=== PATIENT | female | born 2000 | race Caucasian/White ===

== ENCOUNTER 2019-03-07 16:15 | Emergency (ER) | payer OTHER ==
[~2019-03-07] VITALS: Ht 157.5 cm; Wt 58.5 kg
[2019-03-07 16:24] VITALS: BP 115/70; Ht 157.5 cm; Wt 58.5 kg
== END 2019-03-07 17:06 | disposition home or self-care (01) ==
LOC: ED 16:15
DX: T81.30XA Disruption of wound, unspecified, initial encounter (principal); Z98.890 Other specified postprocedural states; X58.XXXA Exposure to other specified factors, initial encounter; Y93.89 Activity, other specified; Y92.89 Other specified places as the place of occurrence of the external cause; Y99.8 Other external cause status